=== PATIENT | male | born 1995 | race Caucasian/White ===

== ENCOUNTER 2022-11-27 18:09 | Emergency (ER) | payer OTHER, SELFPAY ==
[2022-11-27 18:22] VITALS: BP 134/81; PULSE 103; RESP 20; TEMP 37.3; O2SAT 100
--- NOTE | 2022-11-27 18:37 | ED.EYEPROB ---
HPI - Eye Problem General Chief complaint: Eye Problems Stated complaint: left eye Source: patient and RN notes reviewed History of Present Illness HPI Narrative: 27-year-old male presents to urgent care with complaints of swelling to his left upper eyelid. Patient states he 1st had this 4 days ago and [employer] assign him to apply warm compress. Patient states the warm compresses not helped. Patient denies any drainage from the area. Patient reports his vision is slightly obscured due to the swelling in his eyelid. Patient denies any extraocular movement pain. Denies any fevers or chills. Patient does not wear contacts. Some parts of this dictation were generated by voice recognition software and may contain typographical and/or grammatical inaccuracies. Related Data Allergies Allergy/AdvReac Type Severity Reaction Status Date / Time No Known Allergies Allergy Unknown Verified 11/27/22 18:35 Review of Systems Review of Systems: Pertinent positives and pertinent negatives per HPI. PMFSH Comments At the time of my signature, I reviewed and agree with the nursing past medical, surgical, social, and family history. There is no relevant family history pertinent to the patient complaint. Exam Narrative: GENERAL: This is a well-nourished, well-developed patient, in no apparent distress. HEAD: normocephalic, atraumatic. EYES: PERRL. Sclera clear/white. Vision is grossly intact. 0.5 cm in diameter stye it noted to left upper, medial lid. EARS: External ears normal, auditory canals clear and without drainage, TMs normal without perforation. Hearing grossly intact. NOSE: External nose normal with no obvious nasal discharge, nares without redness, no rhinorrhea. THROAT: Mucous membranes moist, posterior pharynx clear. NECK: Neck supple, non-tender without lymphadenopathy, masses or thyromegaly. CARDIOVASCULAR: Regular rate RESPIRATORY: No respiratory distress SKIN: warm, intact with no suspicious lesions or rash, good texture and turgor. NEURO: awake, alert, and oriented to person, place and time. There were no obvious focal neurologic abnormalities. Course Course Level of Care: Express Care Visit Vital Signs Vital signs: Vital Signs Temperature 99.2 F 11/27/22 18:22 Pulse Rate 103 H 11/27/22 18:22 Respiratory Rate 20 11/27/22 18:22 Blood Pressure 134/81 11/27/22 18:22 Pulse Oximetry 100 11/27/22 18:22 Oxygen Delivery Room Air 11/27/22 18:22 Temperature 99.2 F 11/27/22 18:22 Pulse Rate 103 H 11/27/22 18:22 Respiratory Rate 20 11/27/22 18:22 Blood Pressure 134/81 11/27/22 18:22 Pulse Oximetry 100 11/27/22 18:22 Oxygen Delivery Room Air 11/27/22 18:22 Reviewed MDM - Eye Problem MDM Narrative Medical decision making narrative: Take antibiotics as directed. Follow-up with ophthalmology within the next week. Go to the ER with any new or worsening symptoms. Follow up with [facility] within a week. Differential Diagnosis Differential diagnosis: Likely periorbital cellulitis and other (Abscess, stye) Critical Care Time Critical Care Time Critical Care Time: No Discharge Plan Discharge Clinical Impression: Hordeolum Qualifiers: Hordeolum type: externum Laterality: left Eyelid: upper Qualified Code(s): H00.014 - Hordeolum externum left upper eyelid Patient Disposition: Home, Self-Care Condition: Stable Instructions: Antibiotic Damaris, Noa (ED) Additional Instructions: Take antibiotics as directed. Follow-up with ophthalmology within the next week. Go to the ER with any new or worsening symptoms. Follow up with [facility] within a week. Prescriptions: New cephalexin 500 mg capsule 500 mg PO Q12H 7 Days Qty: 14 0RF erythromycin 5 mg/gram (0.5 %) ointment 1 applic LEFT EYE DAILY 7 Days Qty: 3.5 0RF Follow-up/Referrals: PHYSICIAN,SENIOR INFORMATION SECURITY ENGINEER [Primary Care Provider] - Time of Disposition: 18:39
== END 2022-11-27 18:55 | disposition home or self-care (01) ==
PROVIDERS: Emergency Provider Nurse Practitioner Family
DX: H00.014 Hordeolum externum left upper eyelid (principal)
CPT/HCPCS: 99203; G0463

== ENCOUNTER 2024-02-21 10:31 | Emergency (ER) | payer OTHER, SELFPAY ==
--- NOTE | 2024-02-21 10:38 | ED.GENADULT ---
HPI - General Adult General Chief complaint: Headache Stated complaint: Headache/Jaw Pain Time Seen by Provider: 02/21/24 10:38 Source: patient, RN notes reviewed and old records reviewed Mode of arrival: ambulatory Limitations: no limitations History of Present Illness HPI narrative: 28-year-old male to Express Care for complaint of headache that occurs every morning for 2.5 weeks. Patient states that the pain woke him from his sleep early this morning. Patient states that pain is at right parietal behind right ear and into right jaw. Patient denies pertinent medical history, allergies, visual changes, fever, dizziness, dental pain , nausea, vomiting, chest pain, shortness of breath, difficulty swallowing. Patient states that it has been 6-7 years since he has seen a dentist and 6-7 years since he has seen a primary care provider. Patient able to tolerate fluids by mouth. Respirations Even and nonlabored. Patient will to speaking complete sentences without difficulty. Patient in no acute distress. Related Data Allergies Allergy/AdvReac Type Severity Reaction Status Date / Time No Known Allergies Allergy Unknown Verified 11/27/22 18:35 Review of Systems Review of Systems: All systems reviewed & are unremarkable except as noted in HPI and below Constitutional: Constitutional: Reports as per HPI, Denies body ache(s), Denies chills, Denies fatigue, Denies fever(s) and Reports headache(s) Eyes: Eyes: Reports no additional eye complaints ENT: Reports as per HPI, Reports otalgia (Right; radiating from right parietal ) and Reports facial pain (right jaw) Cardiovascular: Cardiovascular: Reports no additional cardiovascular complaints, Denies chest pain and Denies dyspnea Respiratory: Respiratory: Reports no additional respiratory complaints, Denies cough and Denies dyspnea Musculoskeletal: Musculoskeletal: Reports no additional musculoskeletal complaints Neurologic: Reports system reviewed and no additional complaints, except as documented Psychiatric: Psychiatric: Reports no additional psychiatric complaints PMFSH Comments At the time of my signature, I reviewed and agree with the nursing past medical, surgical, social, and family history. There is no relevant family history pertinent to the patient complaint. Exam Const: General: cooperative, healthy appearing, comfortable, no acute distress, alert, uncomfortable, well groomed and well nourished Nutritional Appearance: well nourished Orientation/consciousness: patient oriented x3 Limitations: no limitations HENMT: Head: normal to inspection Ears: external ears normal Face/Nose/Sinus: Normal external nose present, Normal nares present, normal facial exam, No erythema and No edema Face and sinus: normal facial exam, no erythema and no edema Mouth: Yes Normal oral and palatal mucosa present, Yes malodorous breath fetid and No muffled voice Teeth and gingiva: abnormal tooth and associated gingiva, caries (Multiple caries throughout; tooth 32 with extensive caries ), gingiva abnormal and poor dentition Other: Multiple dental caries throughout, diffuse gingival erythema, multiple teeth fractured at the gumline, no gingival drainage noted Eyes: General: appearance normal, both eyes and all related structures Neck: Neck: normal visual inspection, full ROM and no meningeal signs Lymphatic: no lymphadenopathy noted and no lymphedema noted Chest: Chest palpation & inspection: normal inspection of the chest Resp: Effort & Inspection: normal respiratory effort and able to speak in complete sentences Auscultation: clear to auscultation bilaterally Cardio: Jugular venous distension: no JVD Rate: regular rate Rhythm: regular rhythm Back/Spine/Pelvis: Cervical Spine: cervical ROM normal Skin: General skin exam: normal color, no rashes or lesions noted and turgor normal Neuro: General: patient oriented x3, gait normal, moves all extremities and no meningeal signs Spee
[2024-02-21 10:41] VITALS: BP 154/92; PULSE 93; RESP 20; TEMP 36.3; O2SAT 100
== END 2024-02-21 11:22 | disposition home or self-care (01) ==
PROVIDERS: Emergency Provider Nurse Practitioner Family
DX: K04.7 Periapical abscess without sinus (principal); R51.9 Headache, unspecified
CPT/HCPCS: 99211; 99213; G0463

== ENCOUNTER 2024-05-18 18:35 | Emergency (ER) | payer OTHER, SELFPAY ==
--- NOTE | ~2024-05-18 | XR_ITS ---
XR finger 1st LT min 2V DATE: 05/18/2024 19:15 INDICATION: Swelling and pain. No known injury. TECHNIQUE: 3 view COMPARISON: None FINDINGS: Mild osteoarthritis at the first metacarpophalangeal joint. No fracture, dislocation, periosteal reaction or bone destruction is detected. No radiopaque foreign body or subcutaneous emphysema. IMPRESSION: Mild osteoarthritis of first metacarpophalangeal joint Reviewed, dictated and finalized at location A. ENGINEER FREIGHT
[2024-05-18 18:40] VITALS: BP 143/83; PULSE 89; RESP 17; TEMP 37.1; O2SAT 100
--- NOTE | 2024-05-18 18:53 | ED.GENADULT ---
HPI - General Adult General Chief complaint: Skin/Abscess/Foreign Body Stated complaint: left thumb swelling Time Seen by Provider: 05/18/24 18:54 Source: patient, RN notes reviewed and old records reviewed Mode of arrival: ambulatory Limitations: no limitations History of Present Illness HPI narrative: 28 year old male presents to [facility] care with complaints of 2 day duration of left distal thumb swelling with no known injury.Patient reports that most of his discomfort is at the tip of his thumb. 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 Patient reports that he is concerned for infection in his thumb. Patient reports no known fevers chills or sweats.Patient has taken some Tylenol for his symptoms MD complaint: pain to left thumb Onset (ago): day(s) (2) Location: left and upper extremity (thumb) Severity scale (1-10): 5 Treatments prior to arrival: other (Tylenol) Related Data Allergies Allergy/AdvReac Type Severity Reaction Status Date / Time No Known Allergies Allergy Unknown Verified 05/18/24 18:43 Review of Systems Review of Systems: CONSTITUTIONAL: Denies fever, chills, or sweats. EYES: Denies visual changes, redness, or discharge. ENT: Denies rhinorrhea, congestion, sore throat, or otalgia. CARDIOVASCULAR: Denies chest pain, palpitations, or edema. RESPIRATORY: Denies cough or dyspnea. GASTROINTESTINAL: Denies abdominal pain, nausea, vomiting, or diarrhea. GENITOURINARY: Denies dysuria or hematuria. SKIN: Denies rash or itching. MUSCULOSKELETAL: Denies back pain, Reports pain to his left thumb for past 2 days with throbbing to distal end of thumb with some swelling reported, or myalgia. NEUROLOGIC: Denies headache, numbness, or weakness. PSYCHIATRIC: Denies anxiety or depression. All systems reviewed & are unremarkable except as noted in HPI and below PMFSH Past Medical History Medical History Asthma Social History Social History Smoking status: Current some day smoker Tobacco type: cigarettes Alcohol intake: current Alcohol use details: social Substance use type: does not use Living arrangements: with family Gender identity (if verbalized by the patient): Male Comments At time of signature, agree with nursing past medical, surgical, social and family history. There is no relevant family history pertinent to the presenting complaint Exam Narrative: GENERAL: Well-appearing, well-nourished, and in no acute distress. HEAD: Normocephalic, atraumatic. EYES: PERRLA and EOMI. ENT: Nares clear, no rhinorrhea or epistaxis. Mucous membranes moist.TM's normal throat pink with no swelling NECK: Supple. no lymphadenopathy CHEST: Clear to auscultation. No respiratory distress. HEART: Regular rate and rhythm. No murmur heard. Normal peripheral pulses. ABDOMEN: Soft, nontender, nondistended, normal active bowel sounds. EXTREMITIES: Normal range of motion. No edema. Exception with some swelling noted to the distal aspect of his left thumb with minimal redness, no fluctuation of tissue or any open skin area, some calluses noted onfingers and thumb, no evidence of any foreign body or any known injury to thumb SKIN: Warm, dry, no rash. NEURO: No focal deficits. Alert and oriented x3. Course Course Emergency Course: Patient is aware of diagnosis, understands and agrees to treatment plan.? Anticipatory guidance given.? Patient agrees to follow-up as directed and is aware of reasons to seek care at the emergency department. Portions of this record may have been created with voice recognition software Level of Care: Express Care Visit Vital Signs Vital signs: Vital Signs Temperature 37.1 C 05/18/24 18:40 Pulse Rate 89 05/18/24 18:40 Respiratory Rate 17 05/18/24 18:40 Blood Pressure 143/83 H 05/18/24 18:40 Pulse Oximetry 100 05/18/24 18:40 Oxygen Delivery Room Air 05/18/24 18:40 Temperature 37.1 C 05/18/24 18:40 Pulse Rate 89 05/18/24 18:40 Respiratory Rate 17 05/18/24 18:40 Blood Pressure 143/83 H 05/18/24 18:40 Pulse Oximetry 100 05/18/24 18:40 Oxygen Delivery Room Air 05/18/24 18:40 Reviewed Medical Decision Making MDM Narrative Medical decision making narrative: Exam findings and imaging show no acute concerns or changes; patient is non-toxic appearing and is in no distress.? Patient is appropriate for outpatient treatment and follow-up Differential Diagnosis Differential Diagnosis: pain to left thumb. swelling of left thumb, osteoarthritis left thumb Medical Records Medical records reviewed: Yes I reviewed the external patient's medical records. Vital Signs Vital Signs: Vital Signs Temperature 37.1 C 05/18/24 18:40 Pulse Rate 89 05/18/24 18:40 Respiratory Rate 17 05/18/24 18:40 Blood Pressure 143/83 H 05/18/24 18:40 Pulse Oximetry 100 05/18/24 18:40 Oxygen Delivery Room Air 05/18/24 18:40 Temperature 37.1 C 05/18/24 18:40 Pulse Rate 89 05/18/24 18:40 Respiratory Rate 17 05/18/24 18:40 Blood Pressure 143/83 H 05/18/24 18:40 Pulse Oximetry 100 05/18/24 18:40 Oxygen Delivery Room Air 05/18/24 18:40 reviewed Imaging Data Attestation: I personally reviewed and interpreted this imaging study as follows: My impression: Left thumb:mild osteoarthritis of 1st metacarpophalangeal joint no radiopaque foreign body or any subcutaneous emphysema, no periosteal reaction Radiologist's impression: [place] [address] XRay Report Signed Patient: Nik Arriaza : 1995 MR#: [id number] Age: 28 Acct:[id number] Loc: [facility] ADM Date: 05/18/24Attending Dr: Ordering Physician: Lauren Quiroz APRN Date of Service: 05/18/24 Procedure(s): XR finger 1st LT min 2V Accession Number(s): [id number] cc: GASKET MAKER PHYSICIAN; Lauren Quiroz APRN~ XR finger 1st LT min 2V DATE: 05/18/2024 19:15 INDICATION: Swelling and pain. No known injury. TECHNIQUE: 3 view COMPARISON: None FINDINGS: Mild osteoarthritis at the first metacarpophalangeal joint. No fracture, dislocation, periosteal reaction or bone destruction is detected. No radiopaque foreign body or subcutaneous emphysema. IMPRESSION: Mild osteoarthritis of first metacarpophalangeal joint Reviewed, dictated and finalized at location A. D OPERATOR Dictated By: Jason Leary MD 05/18/241932 Signed By: <Electronically signed by Jason Leary MD in OV> Critical Care Time Critical Care Time Critical Care Time: No Discharge Plan Discharge Clinical Impression: Pain of left thumb, Osteoarthritis of left thumb Patient Disposition: Home, Self-Care Condition: Stable Instructions: Antibiotic Form Additional Instructions: Tylenol for lesser pain Ibuprofen regularly for the next 2-3 days for the inflammation soak left thumb in warm soapy water and put bacitracin ointment around nail bed, always wear gloves at work Follow-up with orthopedic surgeon or hand surgeon if continued pain Follow-up with PCP if further problems or concerns Ice to the area 20-30 minutes 4-6 times a day Elevate above heart If your symptoms persist, change or worsen significantly before you can contact your personal physician then please, without delay, go to the emergency department for further evaluation. Follow-up with PCP in 7-10 days or sooner if needed Follow up with PCP soon in regards to your blood pressure which is elevated above threshold for referral. Blood pressure above 120/80 may indicate pre-hypertension. 143/83 Antibiotic due to patient's concern for infection Prescriptions: New ibuprofen 600 mg tablet 600 mg PO QID PRN (Reason: pain) Qty: 20 0RF Rx Instructions: take with food cephalexin 500 mg capsule 500 mg PO Q8H Qty: 21 0RF Follow-up/Referrals: PHYSICIAN,GASKET MAKER [Primary Care Provider] - Time of Disposition: 19:48 Quality Luis Coma Scale Eyes: Open Verbal: Oriented and Alert Motor: Follows Commands [place] Coma Total Score: 15
== END 2024-05-18 19:55 | disposition home or self-care (01) ==
PROVIDERS: Emergency Provider Registered Nurse
DX: M79.645 Pain in left finger(s) (principal); M18.12 Unilateral primary osteoarthritis of first carpometacarpal joint, left hand; F17.210 Nicotine dependence, cigarettes, uncomplicated; J45.909 Unspecified asthma, uncomplicated
CPT/HCPCS: 73140; 99213; G0463